=== PATIENT | female | born 1965 | race Caucasian/White ===

== ENCOUNTER 2018-06-26 17:57 | Observation (INO) ==
[2018-06-26] MEDS ORDERED: Sodium Chloride 0.9% 1,000 ML PRIMARY IV ONE (18:09)
--- NOTE | 2018-06-26 18:19 | PDOC ---
Psych/Suicidal/OD HPI - General Chief Complaint: General Medical Stated Complaint: Emotional, Drinking Date Seen by Provider: 06/26/18 Time Seen by Provider: 18:07 Source: POSITIVE: Patient, Spouse Exam Limitations: POSITIVE: Intoxication Nurse's Notes Reviewed & Considered: Yes - History of Present Illness Initial Comments: Patient presents to the emergency department this evening with her brother and elisabeth. Her fianc reports that the patient attempted to overdose this evening by taking all of her medications. He states that she's he stopped her. Patient states that she is suicidal and had intended to overdose this evening but did not take any extra medication. Patient does report drinking alcohol this evening. She denies homicidal ideation. She denies auditory or visual hallucinations. Patient does have a history of suicide attempt via overdose approximately 2 years ago. She states she was admitted to the hospital at that time but was never admitted to a psychiatric care unit. Patient states that her brother one year ago and her mother a few years prior. And that she has not been coping well with these deaths. Timing: REPORTS: Gradual, Getting Worse Duration: >1 week Intent: REPORTS: Suicide, Prior Suicidal Thoughts Context: REPORTS: Other ( of her brother and mother) Associated Symptoms: REPORTS: Depressed, Suicidal Thoughts, Specific Plan, Suicidal Gesture. DENIES: Paranoid, Confused, Hallucinating, Ingestion, Overdose, Incision, Stab Wound, Incised Wrist, Abraded Wrist How did ingestion/attempt come to attention: She was found by her significant other threatening to harm herself. Arrived By: REPORTS: Private Vehicle Any Prior Injuries Related to Current Complaint?: Yes (Patient has attempted overdose in the past) - Patient Home Medications Home Medications: Home Medications Medication Instructions Recorded Confirmed albuterol sulfate HFA 90 2 inh INH Q6H PRN #8 g 05/30/18 06/26/18 mcg/actuation aerosol inhaler bupropion HCl SR 150 mg tablet,12 150 mg PO BID #60 tab 05/30/18 06/26/18 hr sustained-release citalopram 10 mg tablet 10 mg PO QDAY #30 tab 05/30/18 06/26/18 cyclobenzaprine 10 mg tablet 10 mg PO DAILY #30 tab 05/30/18 06/26/18 estradiol 2 mg tablet 2 mg PO DAILY #30 tab 05/30/18 06/26/18 ibuprofen 600 mg tablet 600 mg PO TID PRN #90 tab 05/30/18 06/26/18 loratadine 10 mg tablet 10 mg PO DAILY #30 tab 05/30/18 06/26/18 omeprazole 20 mg capsule,delayed 20 mg PO DAILY #30 cap 05/30/18 06/26/18 release - Patient Allergies Allergies/Adverse Reactions: Allergies 3 Allergy/AdvReac Type Severity Reaction Status Date / Time No Known Allergies Allergy Verified 06/26/18 17:59 Past Medical History - heen HEENT History: Denies History Cardiovascular History: Denies History Respiratory History: COPD Gastrointestinal History: GERD, Gallbladder Disease Genitourinary History: Denies History Endocrine History: Denies History Musculoskeletal History: Back Pain, Back Injury Prosthesis or Implant: No Neurological History: Denies History Blood Disorders: Denies History Psychiatric History: Depression, Self-Harm Disorders History of Sexually Transmitted Diseases: No Cancer History: Denies History History of MDRO: No History of Other Communicable Diseases: No Tobacco Use: Current Every Day Smoker Alcohol Use: Occasionally Type of alcohol normally used: Beer, Hard Liquor In the Past 12 Months, Have Used or Abuse Any Substance: None (states she has been "clean" for two years) Previous Hospitalizations: Yes Previous Surgical History: Yes ROS - Limitations ROS Limitations: Intoxication Constitution: REPORTS: Denies Symptoms Cardiovascular: REPORTS: Denies Cardiac Symptoms Respiratory: REPORTS: Denies Resp Symptoms Neurological: REPORTS: Denies Neuro Symptoms Gastrointestinal: REPORTS: Denies GI Symptoms Endocrine: REPORTS: Denies Symptoms Musculoskeletal: REPORTS: Denies MS Symptoms Genitourinary: REPORTS: Denies Symptoms Eyes: REPORTS: Denies Symptoms ENT: REPORTS: Denies Symptoms Skin: REPORTS: Denies Skin Symptoms Lympathic: REPORTS: Denies Lympathic Symptoms Immunologic: POSITIVE: Denies Symptoms Psychiatric: POSITIVE: Anxiety, Depression, Suicidal Thoughts. NEGATIVE: Auditory Hallucinations, Visual Hallucinations, Homicidal Thoughts Psych/Suicidal/OD Exam - General Appearance General Appearance: POSITIVE: Alert, Mild Distress, Anxious. NEGATIVE: Obtunded - HEENT HEENT: POSITIVE: Head Inspection Nml, Eyes Inspection Nml, Ears Inspection Nml, Nose Inspection Nml, Oral/Dental Inspect. Nml, Pharynx Inspect. Nml, PERRL, EOMI , Dry Mucous Membranes, Other (horizontal nystagmus, smells of etoh) - Pupil Size Pupil Size: 6 mm: Bilateral - Neurological/Psychological Mental Status: POSITIVE: Depressed Mood, Depressed Affect, Tearful, Suicidal Ideations Orientation: POSITIVE: Oriented x3 Cranial Nerves: POSITIVE: assistant manager Intact as Tested Sensory/Motor: POSITIVE: Normal Motor Response, Normal Sensory Response, Normal Reflexes When asked, pt ADMITS continued consideration of suicide:: Yes - Neck/Back Neck/Back: POSITIVE: Normal Inspection, Supple - Respiratory Respiratory: POSITIVE: No Respiratory Distress - CVS Cardiovascular: POSITIVE: Regular Rate and Rhythm, Heart Sounds Normal, Equal Pulses Peripheral Pulses: Radial (R): 2+, Radial (L): 2+, Dorsalis-pedis (R): 2+, Dorsalis-pedis (L): 2+ - Abdomen Abdomen: Soft: (All Quadrants), Normal Bowel Sounds: (All Quadrants), Denies Tenderness: (All Quadrants), No Splenomegaly: (All Quadrants), No Hepatomegaly: (All Quadrants), No Rebound: (All Quadrants) - Skin Skin: POSITIVE: Intact, Normal For Race, Dry - Extremities Extremity: Non-Tender: (All Extremities), Normal ROM: (All Extremities), Normal Inspection: (All Extremities), Pelvis Stable: (All Extremities) Psych/Suicidal/OD Progress - Results Reviewed by me Lab Results Reviewed by Me: Yes CBC and BMP: 06/26/18 18:15 06/26/18 18:15 Lab Results:: Laboratory Results 3 06/26/18 06/26/18 06/26/18 18:15 18:15 18:15 WBC 5.81 RBC 4.34 Hgb 14.0 Hct 39.7 MCV 91.5 MCH 32.3 H MCHC 35.3 RDW Std Deviation 41.9 RDW Coeff of Ginger 12.7 Plt Count 196 MPV 9.5 Immature Gran % (Auto) 0.3 Neut % (Auto) 72.0 Lymph % (Auto) 21.0 Knott % (Auto) 5.2 Eos % (Auto) 0.5 Baso % (Auto) 1.0 Immature Gran # (Auto) 0.02 Neut # (Auto) 4.18 Lymph # (Auto) 1.22 Knott # (Auto) 0.30 Eos # (Auto) 0.03 Baso # (Auto) 0.06 WBC Morphology Comment Normal morphology Plt Morphology Comment Normal morphology RBC Morph Comment Normal morphology Sodium 144 Potassium 4.0 Chloride 109 Carbon Dioxide 22 L Anion Gap 13 BUN 13 Creatinine 0.8 Estimated GFR > 60 BUN/Creatinine Ratio 16.25 Glucose 93 Calculated Osmolality 297.0 H Calcium 8.9 Total Bilirubin 0.2 L AST 28 ALT 20 Alkaline Phosphatase 80 Total Protein 7.8 Albumin 4.8 Globulin 3.0 Albumin/Globulin Ratio 1.60 TSH 1.34 Free T4 1.38 Ur Collection Type Urine Color Urine Clarity Urine pH Ur Specific [place] U Specif Grav (Refrac) Urine Protein Urine Glucose (UA) Urine Ketones Urine Occult Blood Urine Nitrate Urine Bilirubin Urine Urobilinogen Ur Leukocyte Esterase Urine RBC Urine WBC Ur Squamous Epith Cells Ur Renal Epithelial Cell Urine Crystals Urine Bacteria Urine Casts Urine Mucus Urine Trichomonas Urine Yeast Urine HCG, Qual Salicylates Urine Opiates Screen Ur Buprenorphine Ur Oxycodone Screen Urine Methadone Screen Ur Propoxyphene Screen Acetaminophen Barbiturate Screen U Tricyclic Antidepress Phencyclidine Screen Amphetamines Screen U Methamphetamines Scrn Benzodiazepines Screen Cocaine Screen U Marijuana (THC) Screen Serum Alcohol 159 H 3 06/26/18 06/26/18 06/26/18 18:50 19:10 19:10 WBC RBC Hgb Hct MCV MCH MCHC RDW Std Deviation RDW Coeff of Ginger Plt Count MPV Immature Gran % (Auto) Neut % (Auto) Lymph % (Auto) Knott % (Auto) Eos % (Auto) Baso % (Auto) Immature Gran # (Auto) Neut # (Auto) Lymph # (Auto) Knott # (Auto) Eos # (Auto) Baso # (Auto) WBC Morphology Comment Plt Morphology Comment RBC Morph Comment Sodium Potassium Chloride Carbon Dioxide Anion Gap BUN Creatinine Estimated GFR BUN/Creatinine Ratio Glucose Calculated Osmolality Calcium Total Bilirubin AST ALT Alkaline Phosphatase Total Protein Albumin Globulin Albumin/Globulin Ratio TSH Free T4 Ur Collection Type Clean catch urine Clean catch urine Urine Color Yellow Urine Clarity Clear Urine pH 6.0 Ur Specific [place] <=1.005 U Specif Grav (Refrac) 1.002 Urine Protein Negative Urine Glucose (UA) Negative Urine Ketones Negative Urine Occult Blood Negative Urine Nitrate Negative Urine Bilirubin Negative Urine Urobilinogen 0.2 Ur Leukocyte Esterase Trace Urine RBC None Urine WBC 0-1 Ur Squamous Epith Cells Moderate Ur Renal Epithelial Cell None Urine Crystals None Urine Bacteria None Urine Casts None Urine Mucus None Urine Trichomonas None Urine Yeast None Urine HCG, Qual Salicylates < 1.0 Urine Opiates Screen Negative Ur Buprenorphine Negative Ur Oxycodone Screen Negative Urine Methadone Screen Negative Ur Propoxyphene Screen Negative Acetaminophen < 10.0 Barbiturate Screen Negative U Tricyclic Antidepress Negative Phencyclidine Screen Negative Amphetamines Screen Negative U Methamphetamines Scrn Negative Benzodiazepines Screen Negative Cocaine Screen Negative U Marijuana (THC) Screen Negative Serum Alcohol 3 06/26/18 19:10 WBC RBC Hgb Hct MCV MCH MCHC RDW Std Deviation RDW Coeff of Ginger Plt Count MPV Immature Gran % (Auto) Neut % (Auto) Lymph % (Auto) Knott % (Auto) Eos % (Auto) Baso % (Auto) Immature Gran # (Auto) Neut # (Auto) Lymph # (Auto) Knott # (Auto) Eos # (Auto) Baso # (Auto) WBC Morphology Comment Plt Morphology Comment RBC Morph Comment Sodium Potassium Chloride Carbon Dioxide Anion Gap BUN Creatinine Estimated GFR BUN/Creatinine Ratio Glucose Calculated Osmolality Calcium Total Bilirubin AST ALT Alkaline Phosphatase Total Protein Albumin Globulin Albumin/Globulin Ratio TSH Free T4 Ur Collection Type Urine Color Urine Clarity Urine pH Ur Specific [place] U Specif Grav (Refrac) 1.002 Urine Protein Urine Glucose (UA) Urine Ketones Urine Occult Blood Urine Nitrate Urine Bilirubin Urine Urobilinogen Ur Leukocyte Esterase Urine RBC Urine WBC Ur Squamous Epith Cells Ur Renal Epithelial Cell Urine Crystals Urine Bacteria Urine Casts Urine Mucus Urine Trichomonas Urine Yeast Urine HCG, Qual Negative Salicylates Urine Opiates Screen Ur Buprenorphine Ur Oxycodone Screen Urine Methadone Screen Ur Propoxyphene Screen Acetaminophen Barbiturate Screen U Tricyclic Antidepress Phencyclidine Screen Amphetamines Screen U Methamphetamines Scrn Benzodiazepines Screen Cocaine Screen U Marijuana (THC) Screen Serum Alcohol - Patient's Progress Re-Examine Comment: Patient's case discussed with Dr. Duncan because no bed available at [facility] (inpatient psychiatry). Patient will be admitted to hospitalist service for monitoring until inpatient pschyatric bed becomes availabe. Patient informed of this plan and is amenable. MDM / ED Course: Patient presented to ED. I placed patient on [id number] hold for her suicidal ideation. IV line was established by nursing staff. Patient was given bolus of normal saline for her etoh intoxication. Labs were obtained and results were reviewed. [facility] was consulted and they came and evaluated the patient. Poison Control Notification (name of person in comment): No (Patient did not have an ingestion.) - Medical Clearance for Psych Referral Toxic Causes: POSITIVE: ETOH Cleared medically for psychiatric referral: Yes Patient Care Time - Estimated PCT Patient Care Time (In Minutes): 45 Vital Signs - Recent Vital Signs Vital Signs: Vital Signs (Last 8 hours) Temp Pulse Resp BP Pulse Ox 06/26/18 17:59 97.8 F 105 H 24 148/102 94 - VS Reviewed Vital Signs Reviewed: Yes Discharge Clinical Impression: Alcohol abuse, Anxiety, Suicide attempt, Feeling suicidal Discharge Disposition: Admit to Observation Condition: Stable Follow Up With: NONE,NONE [Primary Care Provider] - Date Decision to Admit to Inpatient: 06/26/18 Time Decision to Admit to Inpatient: 20:15 (No bed available at [facility]. Case discussed with Dr. Duncan. he accepted patient for admission for observation until bed available at [facility]) Date Decision to Transfer to Another Facility: 06/26/18 Time Decision to Transfer to Another Facility: 18:40
[2018-06-26 18:21] LABS: BASOPHILS # (AUTO) 0.06 10*3/UL; EOSINOPHILS # (AUTO) 0.03 10*3/UL; EOSINOPHILS % (AUTO) 0.5 % (0-8); Hematocrit [HCT] 39.7 % (37.0-47.0); LYMPHOCYTES # (AUTO) 1.22 10*3/uL; MEAN CORPUSCULAR HEMOGLOBIN 32.3 PG (27-31); MEAN CORPUSCULAR HGB CONC 35.3 g/dL (33-37); MEAN CORPUSCULAR VOLUME 91.5 FL (81-99); MEAN PLATELET VOLUME 9.5 FL (7.4-12.2); MONOCYTES % (AUTO) 5.2 % (5-15); NEUTROPHILS # (AUTO) 4.18 10*3/UL; RED BLOOD COUNT 4.34 10^6/uL (4.20-5.40)
[2018-06-26 18:22] LABS: PLATELET MORPHOLOGY COMMENT NORMAL MORPHOLOGY (NORM); RBC MORPHOLOGY COMMENT NORMAL MORPHOLOGY (NORM); WBC MORPHOLOGY COMMENT NORMAL MORPHOLOGY (NORM)
[2018-06-26 18:30] LABS: BLOOD UREA NITROGEN 13 mg/dL (7-22); BUN/CREATININE RATIO 16.25 (6-20); SERUM ALBUMIN 4.8 g/dL (3.5-4.8)
[2018-06-26] MEDS ORDERED: LORazepam 1 MG TABLET PO ONE (19:09)
[2018-06-26 19:25] LABS: BILIRUBIN,URINE NEGATIVE (NEG); CLARITY,URINE CLEAR (CLEAR); COLOR,URINE YELLOW; GLUCOSE, URINE (UA) NEGATIVE (NEG); OCCULT BLOOD,URINE NEGATIVE (NEG); PROTEIN,URINE NEGATIVE (NEG); UROBILINOGEN,URINE 0.2 mg/dL (0.2)
[2018-06-26 19:27] LABS: URINE SAMPLE TYPE CLEAN CATCH URINE; URINE SPECIFIC GRAVITY - MAN 1.002
[2018-06-26 19:32] LABS: SQUAMOUS EPITHELIAL CELL,UR MODERATE; URINE SAMPLE TYPE CLEAN CATCH URINE; URINE SPECIFIC GRAVITY - MAN 1.002; WBC,URINE 0-1
[2018-06-26 19:35] LABS: AMPHETAMINE SCREEN NEGATIVE (NEG); CANNABINOID SCREEN,URINE NEGATIVE (NEG); COCAINE SCREEN NEGATIVE (NEG); METHADONE URINE SCREEN NEGATIVE (NEG); METHAMPHETAMINES SCREEN,URINE NEGATIVE (NEG); OPIATE SCREEN,URINE NEGATIVE (NEG)
[2018-06-26 20:29] LABS: SALICYLATE < 1.0 mg/dl (0-20)
[2018-06-26 23:06] VITALS: TEMP 97.6
[2018-06-26 23:28] VITALS: BP 129/88; RESP 20; O2SAT 93
[2018-06-26] MEDS ORDERED: IBUPROFEN 600 MG TABLET PO PRN (23:36)
[2018-06-26] MEDS ORDERED: CALCIUM CARBONATE 500 MG (TUMS) CHEWABLE TABLET PO PRN (23:38)
[2018-06-26] MEDS ORDERED: ACETAMINOPHEN 325 MG TABLET PO PRN (23:38)
[2018-06-26] MEDS ORDERED: DOCUSATE 100 MG CAPSULE PO PRN (23:38)
[2018-06-26] MEDS ORDERED: LIDOCAINE W/ SODIUM BICARB 0.5 ML SYR SUBD PRN (23:38)
[2018-06-26] MEDS ORDERED: ONDANSETRON 4 MG/2 ML VIAL IVP PRN (23:38)
--- NOTE | 2018-06-26 23:42 | PDOC ---
HPI - History of Present Illness Date of Service: 06/26/18 Time of Service: 23:30 Chief Complaint: Reported suicidal ideation History of Present Illness: This is a a 52 years old female with medical history significant for history of depression/anxiety who was brought to the hospital by her brother and elisabeth. They reported to the ER physician that the patient attempted to overdose by taking all of her medication and that they stopped her. She reported to the ER physician that she is suicidal and intended to overdose this evening but she didn't take any. Patient had a history of attempted suicide she said maybe like 4 years ago was admitted to the hospital it sounded it was for an overnight stay although she said that she was "" but she was not on ventilator she stayed only for one night so think more likely that she was unconscious. The patient was seen by [facility] and they suggested admission to the [facility] however they did not have a bed so she was admitted here. By the time the patient came to the floor she told me that she usually doesn't drink whiskey because she react to it and she had 2 shots and she said few things that she doesn't mean including saying that she wanted to harm herself but actually she didn't mean it. she implied that both her fianc and brother concern appears not to be accurate. As she is not homicidal or suicidal and she didn't mean it when she said it as she was under the influence of alcohol. Past Medical History Medical History: 1. History of depression/anxiety. 2. History of chronic back pain Surgical History: 1. History of cholecystectomy. 2. History of hysterectomy. 3. History of C-sections Pertinent Family History: And brother passed as a result of seizures from alcoholism Past Social History: She smokes, occasionally drink, used to use drugs been clean for 2 years Tobacco Use: Current Every Day Smoker Do you dip or chew tobacco: No In the Past 12 Months, Have Used or Abuse Any of the Following Substance: None Alcohol Use: Other (She said she mostly drinks beer maybe once at night but not every night) Medication / Allergies Home Medications: Home Medications 3 Medication Instructions Recorded Confirmed Type albuterol sulfate HFA 90 2 inh INH Q6H PRN #8 g 05/30/18 06/26/18 Rx mcg/actuation aerosol inhaler bupropion HCl SR 150 mg tablet,12 150 mg PO BID #60 tab 05/30/18 06/26/18 Rx hr sustained-release citalopram 10 mg tablet 10 mg PO QDAY #30 tab 05/30/18 06/26/18 Rx cyclobenzaprine 10 mg tablet 10 mg PO DAILY #30 tab 05/30/18 06/26/18 Rx estradiol 2 mg tablet 2 mg PO DAILY #30 tab 05/30/18 06/26/18 Rx ibuprofen 600 mg tablet 600 mg PO TID PRN #90 tab 05/30/18 06/26/18 Rx loratadine 10 mg tablet 10 mg PO DAILY #30 tab 05/30/18 06/26/18 Rx omeprazole 20 mg capsule,delayed 20 mg PO DAILY #30 cap 05/30/18 06/26/18 Rx release Allergies/Adverse Reactions: Allergies 3 Allergy/AdvReac Type Severity Reaction Status Date / Time No Known Allergies Allergy Verified 06/26/18 17:59 Review of Systems - Review of Systems All Systems: Reviewed & No Additional Complaints Except as Stated Exam - Vitals Vital Signs: Vital Signs Temperature 97.6 F Temperature Source Temporal Artery Scan Pulse Rate [Pulse Oximeter 94 Right] Pulse Rate 94 Respiratory Rate 20 Blood Pressure [Left Arm] 129/88 Blood Pressure 129/88 Pulse Ox 93 Oxygen Delivery Method Room Air Height 5 ft 2 in Weight 165 lb 6 oz - General General Appearance: No Acute Distress, Cooperative Additional General Exam Details: Looks older than his stated age - Head Head Exam: Normal Inspection - Eye Eye Exam: POSITIVE: Normal Appearance - ENT ENT Exam: POSITIVE: Normal Exam - Neck Neck Exam: Normal Inspection - Respiratory Respiratory Exam: POSITIVE: Clear to Auscultation - Bilaterally - Cardiovascular Cardiovascular Exam: POSITIVE: RRR - GI/Abdominal GI/Abdominal Exam: POSITIVE: Normal Bowel Sounds, Non Tender, Non Distended, Soft, No Organomegaly - Rectal Rectal Exam: POSITIVE: Deferred - External Exam: POSITIVE: Deferred Exam: POSITIVE: Deferred - Extremities Extremities Exam: POSITIVE: Normal Inspection - Back Back Exam: POSITIVE: Normal Inspection - Neurological Neurological Exam: POSITIVE: Alert, Oriented x 3, CN II-XII Intact, No Facial Droop, Speech Intact / Clear, Moves All Extremities Equally - Psychiatric Psychiatric Exam: POSITIVE: Normal Affect Results - Labs CBC and BMP: 06/26/18 18:15 06/26/18 18:15 Assessment and Plan - Patient Problems (1) Suicidal ideation Current Visit: Yes Status: Acute Comment: She is saying now that she was under the influence of alcohol and she did not mean it and she has no intention of harming herself. I think we'll wait to hear from [facility] and see their recommendation. Meanwhile we'll put her 1-1 and watch her overnight. Code(s): R45.851 - Suicidal ideations (2) Anxiety Current Visit: Yes Status: Acute Comment: Continue her previous medications Code(s): F41.9 - Anxiety disorder, unspecified
--- NOTE | 2018-06-27 05:34 | DCSUMMARY ---
Hospitalization Summary Admit Date: 06/26/2018 Discharge Date: 06/27/18 Hospital Course: Discharge diagnoses 1. Suicidal ideation 2. Alcohol intoxication 3. History of depression/anxiety Hospital course Please see the admission note, within 30 minutes of admitting the patient to the floor as the plan was to the keep her until a bed is available at [facility] a bed opened up and the she was accepted and she was transferred. Laboratory Results 06/26/18 06/26/18 06/26/18 Range/Units 18:15 18:15 18:15 WBC 5.81 (4.8-10.8) 10^3/uL RBC 4.34 (4.20-5.40) 10^6/uL Hgb 14.0 (12.0-16.0) g/dL Hct 39.7 (37.0-47.0) % MCV 91.5 (81-99) FL MCH 32.3 H (27-31) PG MCHC 35.3 (33-37) g/dL RDW Std Deviation 41.9 (39-50) fL RDW Coeff of Ginger 12.7 (11.5-14.5) % Plt Count 196 (140-350) 10*3/uL MPV 9.5 (7.4-12.2) FL Immature Gran % (Auto) 0.3 (0-5) % Neut % (Auto) 72.0 (50-80) % Lymph % (Auto) 21.0 (10-50) % Wake % (Auto) 5.2 (5-15) % Eos % (Auto) 0.5 (0-8) % Baso % (Auto) 1.0 (0-1) % Immature Gran # (Auto) 0.02 10*3/UL Neut # (Auto) 4.18 10*3/UL Lymph # (Auto) 1.22 10*3/uL Wake # (Auto) 0.30 (0.3-0.8) 10*3/UL Eos # (Auto) 0.03 10*3/UL Baso # (Auto) 0.06 10*3/UL WBC Morphology Comment Normal morphology (NORM) Plt Morphology Comment Normal morphology (NORM) RBC Morph Comment Normal morphology (NORM) Sodium 144 (135-145) meq/L Potassium 4.0 (3.8-5.2) meq/L Chloride 109 (98-112) meq/L Carbon Dioxide 22 L (23-33) meq/L Anion Gap 13 (5-20) BUN 13 (7-22) mg/dL Creatinine 0.8 (0.50-1.20) mg/dL Estimated GFR > 60 (>60 ml/min/1.73m(2)) BUN/Creatinine Ratio 16.25 (6-20) Glucose 93 (78-110) mg/dL Calculated Osmolality 297.0 H (267-292) mOsm/kg Calcium 8.9 (8.7-10.7) mg/dL Total Bilirubin 0.2 L (0.3-1.2) mg/dL AST 28 (8-39) IU/L ALT 20 (9-52) IU/L Alkaline Phosphatase 80 (38-126) IU/L Total Protein 7.8 (6.1-8.0) g/dL Albumin 4.8 (3.5-4.8) g/dL Globulin 3.0 (2.50-4.10) g/dL Albumin/Globulin Ratio 1.60 (1.3-2.0) mg/g TSH 1.34 (0.2700-4.2000) uIU/mL Free T4 1.38 (0.93-1.71) ng/dL Ur Collection Type Urine Color Urine Clarity (CLEAR) Urine pH (5.0-8.5) Ur Specific [place] (1.005-1.030) U Specif Grav (Refrac) Urine Protein (NEG) mg/dl Urine Glucose (UA) (NEG) mg/dL Urine Ketones (NEG) Urine Occult Blood (NEG) Urine Nitrate (NEG) Urine Bilirubin (NEG) Urine Urobilinogen (0.2) mg/dL Ur Leukocyte Esterase (NEG) Urine RBC (NONE) /hpf Urine WBC (NONE) Ur Squamous Epith Cells (NONE) Ur Renal Epithelial Cell (NONE) Urine Crystals Urine Bacteria (NONE) Urine Casts Urine Mucus (NONE) Urine Trichomonas (NONE) Urine Yeast (NONE) Urine HCG, Qual Salicylates (0-20) mg/dl Urine Opiates Screen (NEG) Ur Buprenorphine (NEG) Ur Oxycodone Screen (NEG) Urine Methadone Screen (NEG) Ur Propoxyphene Screen (NEG) Acetaminophen (0-30) ug/mL Barbiturate Screen (NEG) U Tricyclic Antidepress (NEG) Phencyclidine Screen (NEG) Amphetamines Screen (NEG) U Methamphetamines Scrn (NEG) Benzodiazepines Screen (NEG) Cocaine Screen (NEG) U Marijuana (THC) Screen (NEG) Serum Alcohol 159 H (0-10) mg/dL 06/26/18 06/26/18 06/26/18 Range/Units 18:50 19:10 19:10 WBC (4.8-10.8) 10^3/uL RBC (4.20-5.40) 10^6/uL Hgb (12.0-16.0) g/dL Hct (37.0-47.0) % MCV (81-99) FL MCH (27-31) PG MCHC (33-37) g/dL RDW Std Deviation (39-50) fL RDW Coeff of Ginger (11.5-14.5) % Plt Count (140-350) 10*3/uL MPV (7.4-12.2) FL Immature Gran % (Auto) (0-5) % Neut % (Auto) (50-80) % Lymph % (Auto) (10-50) % Wake % (Auto) (5-15) % Eos % (Auto) (0-8) % Baso % (Auto) (0-1) % Immature Gran # (Auto) 10*3/UL Neut # (Auto) 10*3/UL Lymph # (Auto) 10*3/uL Wake # (Auto) (0.3-0.8) 10*3/UL Eos # (Auto) 10*3/UL Baso # (Auto) 10*3/UL WBC Morphology Comment (NORM) Plt Morphology Comment (NORM) RBC Morph Comment (NORM) Sodium (135-145) meq/L Potassium (3.8-5.2) meq/L Chloride (98-112) meq/L Carbon Dioxide (23-33) meq/L Anion Gap (5-20) BUN (7-22) mg/dL Creatinine (0.50-1.20) mg/dL Estimated GFR (>60 ml/min/1.73m(2)) BUN/Creatinine Ratio (6-20) Glucose (78-110) mg/dL Calculated Osmolality (267-292) mOsm/kg Calcium (8.7-10.7) mg/dL Total Bilirubin (0.3-1.2) mg/dL AST (8-39) IU/L ALT (9-52) IU/L Alkaline Phosphatase (38-126) IU/L Total Protein (6.1-8.0) g/dL Albumin (3.5-4.8) g/dL Globulin (2.50-4.10) g/dL Albumin/Globulin Ratio (1.3-2.0) mg/g TSH (0.2700-4.2000) uIU/mL Free T4 (0.93-1.71) ng/dL Ur Collection Type Clean catch urine Clean catch urine Urine Color Yellow Urine Clarity Clear (CLEAR) Urine pH 6.0 (5.0-8.5) Ur Specific [place] <=1.005 (1.005-1.030) U Specif Grav (Refrac) 1.002 Urine Protein Negative (NEG) mg/dl Urine Glucose (UA) Negative (NEG) mg/dL Urine Ketones Negative (NEG) Urine Occult Blood Negative (NEG) Urine Nitrate Negative (NEG) Urine Bilirubin Negative (NEG) Urine Urobilinogen 0.2 (0.2) mg/dL Ur Leukocyte Esterase Trace (NEG) Urine RBC None (NONE) /hpf Urine WBC 0-1 (NONE) Ur Squamous Epith Cells Moderate (NONE) Ur Renal Epithelial Cell None (NONE) Urine Crystals None Urine Bacteria None (NONE) Urine Casts None Urine Mucus None (NONE) Urine Trichomonas None (NONE) Urine Yeast None (NONE) Urine HCG, Qual Salicylates < 1.0 (0-20) mg/dl Urine Opiates Screen Negative (NEG) Ur Buprenorphine Negative (NEG) Ur Oxycodone Screen Negative (NEG) Urine Methadone Screen Negative (NEG) Ur Propoxyphene Screen Negative (NEG) Acetaminophen < 10.0 (0-30) ug/mL Barbiturate Screen Negative (NEG) U Tricyclic Antidepress Negative (NEG) Phencyclidine Screen Negative (NEG) Amphetamines Screen Negative (NEG) U Methamphetamines Scrn Negative (NEG) Benzodiazepines Screen Negative (NEG) Cocaine Screen Negative (NEG) U Marijuana (THC) Screen Negative (NEG) Serum Alcohol (0-10) mg/dL 06/26/18 Range/Units 19:10 WBC (4.8-10.8) 10^3/uL RBC (4.20-5.40) 10^6/uL Hgb (12.0-16.0) g/dL Hct (37.0-47.0) % MCV (81-99) FL MCH (27-31) PG MCHC (33-37) g/dL RDW Std Deviation (39-50) fL RDW Coeff of Ginger (11.5-14.5) % Plt Count (140-350) 10*3/uL MPV (7.4-12.2) FL Immature Gran % (Auto) (0-5) % Neut % (Auto) (50-80) % Lymph % (Auto) (10-50) % Wake % (Auto) (5-15) % Eos % (Auto) (0-8) % Baso % (Auto) (0-1) % Immature Gran # (Auto) 10*3/UL Neut # (Auto) 10*3/UL Lymph # (Auto) 10*3/uL [place] # (Auto) (0.3-0.8) 10*3/UL Eos # (Auto) 10*3/UL Baso # (Auto) 10*3/UL WBC Morphology Comment (NORM) Plt Morphology Comment (NORM) RBC Morph Comment (NORM) Sodium (135-145) meq/L Potassium (3.8-5.2) meq/L Chloride (98-112) meq/L Carbon Dioxide (23-33) meq/L Anion Gap (5-20) BUN (7-22) mg/dL Creatinine (0.50-1.20) mg/dL Estimated GFR (>60 ml/min/1.73m(2)) BUN/Creatinine Ratio (6-20) Glucose (78-110) mg/dL Calculated Osmolality (267-292) mOsm/kg Calcium (8.7-10.7) mg/dL Total Bilirubin (0.3-1.2) mg/dL AST (8-39) IU/L ALT (9-52) IU/L Alkaline Phosphatase (38-126) IU/L Total Protein (6.1-8.0) g/dL Albumin (3.5-4.8) g/dL Globulin (2.50-4.10) g/dL Albumin/Globulin Ratio (1.3-2.0) mg/g TSH (0.2700-4.2000) uIU/mL Free T4 (0.93-1.71) ng/dL Ur Collection Type Urine Color Urine Clarity (CLEAR) Urine pH (5.0-8.5) Ur Specific [place] (1.005-1.030) U Specif Grav (Refrac) 1.002 Urine Protein (NEG) mg/dl Urine Glucose (UA) (NEG) mg/dL Urine Ketones (NEG) Urine Occult Blood (NEG) Urine Nitrate (NEG) Urine Bilirubin (NEG) Urine Urobilinogen (0.2) mg/dL Ur Leukocyte Esterase (NEG) Urine RBC (NONE) /hpf Urine WBC (NONE) Ur Squamous Epith Cells (NONE) Ur Renal Epithelial Cell (NONE) Urine Crystals Urine Bacteria (NONE) Urine Casts Urine Mucus (NONE) Urine Trichomonas (NONE) Urine Yeast (NONE) Urine HCG, Qual Negative Salicylates (0-20) mg/dl Urine Opiates Screen (NEG) Ur Buprenorphine (NEG) Ur Oxycodone Screen (NEG) Urine Methadone Screen (NEG) Ur Propoxyphene Screen (NEG) Acetaminophen (0-30) ug/mL Barbiturate Screen (NEG) U Tricyclic Antidepress (NEG) Phencyclidine Screen (NEG) Amphetamines Screen (NEG) U Methamphetamines Scrn (NEG) Benzodiazepines Screen (NEG) Cocaine Screen (NEG) U Marijuana (THC) Screen (NEG) Serum Alcohol (0-10) mg/dL Discharge instruction Diet regular Activity as started Medications Current Medication(s) 3 Medication Instructions Recorded Confirmed Type albuterol sulfate HFA 90 2 inh INH Q6H PRN #8 g 05/30/18 06/26/18 Rx mcg/actuation aerosol inhaler bupropion HCl SR 150 mg tablet,12 150 mg PO BID #60 tab 05/30/18 06/26/18 Rx hr sustained-release citalopram 10 mg tablet 10 mg PO QDAY #30 tab 05/30/18 06/26/18 Rx cyclobenzaprine 10 mg tablet 10 mg PO DAILY #30 tab 05/30/18 06/26/18 Rx estradiol 2 mg tablet 2 mg PO DAILY #30 tab 05/30/18 06/26/18 Rx ibuprofen 600 mg tablet 600 mg PO TID PRN #90 tab 05/30/18 06/26/18 Rx loratadine 10 mg tablet 10 mg PO DAILY #30 tab 05/30/18 06/26/18 Rx omeprazole 20 mg capsule,delayed 20 mg PO DAILY #30 cap 05/30/18 06/26/18 Rx release Follow-up per [facility] after discharge Exam - Vitals Vital Signs: Vital Signs Temperature 97.6 F Temperature Source Temporal Artery Scan Pulse Rate [Pulse Oximeter 94 Right] Pulse Rate 94 Respiratory Rate 20 Blood Pressure [Left Arm] 129/88 Blood Pressure 129/88 Pulse Ox 93 Oxygen Delivery Method Room Air Height 5 ft 2 in Weight 165 lb 6 oz Patient Problems - Patient Problem List (1) Suicidal ideation Status: Acute Code(s): R45.851 - Suicidal ideations Category: Medical (2) Anxiety Status: Acute Code(s): F41.9 - Anxiety disorder, unspecified Category: Medical
[2018-06-27] MEDS ORDERED: OMEPRAZOLE 20 MG CAPSULE PO SCH (07:00)
[2018-06-27] MEDS ORDERED: CITALOPRAM 20 MG TABLET PO SCH (09:00)
[2018-06-27] MEDS ORDERED: LORATADINE 10 MG TABLET PO SCH (09:00)
[2018-06-27] MEDS ORDERED: ESTRADIOL 2 MG PO SCH (09:00)
[2018-06-27] MEDS ORDERED: BuPROPion SR Tab 150 MG TAB PO SCH (09:00)
[2018-06-27] MEDS ORDERED: CYCLOBENZAPRINE 10 MG TABLET PO SCH (09:00)
== END 2018-06-27 00:48 ==
LOC: MED/SURG 17:57 → ER 17:57 → MED/SURG 23:03 → UNDODISIN 06-27 00:48
PROVIDERS: ADMIT Internal Medicine; ATTEND Internal Medicine